=== PATIENT | male | born 1960 | race Caucasian/White ===

== ENCOUNTER 2017-10-17 11:38 | Inpatient (IN) | payer OTHER, MEDICAID ==
--- NOTE | 2017-10-17 11:53 | CPEKG ---
Heart Rate: 92 RR Interval: 652 P-R Interval: 124 QRSD Interval: 120 QT Interval: 372 QTC Interval: 461 P [place]: 82 QRS [place]: -84 T Wave [place]: 77 EKG Severity - ABNORMAL ECG - EKG Impression: SINUS RHYTHM EKG Impression: INCOMPLETE RBBB AND LAFB Electronically Signed By: Gerson Perea 17-Oct-2017 13:57:58
[2017-10-17] MEDS ORDERED: IPRATROPIUM/ALBUTEROL 3 ML DEYVIAL ONE (11:56)
[2017-10-17] MEDS ORDERED: IPRATROPIUM/ALBUTEROL 3 ML DEYVIAL IH ONE (11:57)
[2017-10-17 12:15] LABS: PLATELET COUNT 284 10^3/uL (150-400)
--- NOTE | 2017-10-17 12:16 | EDPHY ---
H & P Smoking Status: Current every day smoker Time Seen by Provider: 10/17/17 12:02 HPI/ROS: CHIEF COMPLAINT: Hypoxia, cough HISTORY OF PRESENT ILLNESS: 57-year-old male presents to the emergency department with complaints of cough and difficulty breathing. The patient states that he has had an ongoing cough for several weeks and this morning when he woke up he noted "my breathing was not right". No history of asthma or pneumonia. He has not noticed a fever. He denies pain in his chest. He has not noticed any pain or swelling in his lower legs. No recent travel. No back pain. No reported trauma. REVIEW OF SYSTEMS: Constitutional: No fever, no chills. Eyes: No double or blurry vision. ENT: No sore throat. Respiratory: Cough, shortness of breath Cardiac: No chest pain. Gastrointestinal: No abdominal pain, vomiting or diarrhea. Genitourinary: No dysuria. Musculoskeletal: No neck or back pain. Skin: No rashes. Neurological: No headache. (Lizy Nova) Past Medical/Surgical History: Paranoid schizophrenia (Lizy Nova) Social History: Single (Lizy Nova) Physical Exam: General Appearance: Alert, no distress. 79% on room air. Heart rate 101, blood pressure 144/78 Eyes: Pupils equal and round. Extraocular motions are all intact. ENT: Mouth: Mucous membranes moist.. Respiratory: The patient decreased breath sounds in the bases and expiratory rhonchi throughout. Cardiovascular: Regular rate and rhythm. Gastrointestinal: Abdomen is soft and nontender, no masses, no rebound or guarding, bowel sounds normal. Neurological: Alert and oriented x 3, cranial nerves II through XII grossly intact Skin: Warm and dry, no rashes. Musculoskeletal: Nontender to palpate along the cervical, thoracic or lumbar spine. Neck is supple. Extremities: Full range of motion and no peripheral edema. Psychiatric: Patient is oriented X 3, there is no agitation. (Lizy Nova) Constitutional: Initial Vital Signs Temperature (C) 36.9 C 10/17/17 11:42 Heart Rate 102 H 10/17/17 11:42 Respiratory Rate 20 10/17/17 11:42 Blood Pressure 144/78 H 10/17/17 11:42 O2 Sat (%) 79 L 10/17/17 11:42 O2 Delivery Mode Room Air O2 (L/minute) 4 Allergies/Adverse Reactions: Penicillins Allergy (Unknown, Verified 10/17/17 11:40) benztropine mesylate [From Cogentin] Allergy (Verified 10/17/17 14:11) Home Medications: Medication Instructions Recorded Valbenazine Tosylate [Ingrezza] 80 mg PO DAILY 04/17/09 Divalproex Sodium 500 mg PO BID@,16 10/17/17 TRIHEXYPHENIDYL HCL 5 mg PO BID@,16 10/17/17 TRIHEXYPHENIDYL HCL 5 mg PO TID PRN 10/17/17 cloZAPine [Clozaril Odt] 50 mg PO HS 10/17/17 cloZAPine [Clozaril Odt] 75 mg PO DAILY 10/17/17 fluPHENAZine HCL [Prolixin 5 MG 15 mg PO BID 10/17/17 (*)] Medical Decision Making - Diagnostics Imaging: Discussed imaging studies w/ newspaper deliverer Radiologist, I viewed and interpreted images myself ED Course/Re-evaluation: 57-year-old male presents to the emergency department with hypoxia. The patient admits to having cold symptoms for a few weeks and then this morning he woke up and was having difficulty breathing. The case was discussed with Dr. Gerson Perea, secondary supervising physician, who did not directly evaluate the patient but agrees with treatment and plan. Laboratory studies reveal normal white blood cell count. BNP was nearly 700. The patient was placed on oxygen and was also given duo nebulizer. Patient was feeling much better after duo nebulizer. Patient had a new left lower lobe nodule in his lung measuring 2.6 cm x 0.8 cm. He has evidence of severe COPD. He has atelectasis in the base versus possible superimposed pneumonia. Given his hypoxia and findings on plain film chest x-ray, CT angiogram has been ordered of the chest and is pending. CT pulmonary angiogram reveals no evidence of pulmonary embolism. No evidence of pneumonia. Severe COPD noted. The patient was kept on 4 L of nasal cannula oxygen to keep his O2 saturation at 93%. Patient was given 125 mg of IV Solu-Medrol. The patient ambulated to the bathroom and when he came back and was going to be hooked back up to the monitor, he was 74% on room air. The patient is not in any respiratory distress. He was placed back on nasal cannula oxygen and will be admitted to Dr. Gtz. 2:30 p.m.: Dr. Lenin Brown came to evaluate the patient. The patient refused admission to the hospital. He states"let me just go outside and smoke" . I explained to the patient that he should be admitted to the hospital for further breathing treatments and steroids to help with his breathing. He understands that he could without oxygen. He states that he just wants to go out and smoke cigarettes. He does not want to stay in the hospital. He states that he would reconsider after he went out to smoke. The Emergency Room production line technician wheeled patient up to the room and he agreed to stay. Dr. Lenin Brown is aware. (Lizy Nova) I did not see this patient while he was in the emergency department. However his care was discussed with the PA while the patient was in the department. I agree with treatment plan and management. (Gerson Perea) Differential Diagnosis: Shortness of breath including but not limited to pulmonary infectious process, COPD, asthma, pulmonary embolus and congestive heart failure. (Lizy Nova) - Data Points Laboratory Results: Laboratory Results 10/17/17 11:52 10/17/17 11:52 Medications Given: Albuterol/Ipratropium (Duoneb) 3 ml IH QID [facility] Stop: 04/15/18 15:59 Last Admin: 10/18/17 11:33 Dose: 3 ml Azithromycin (Zithromax) 250 mg PO DAILY [facility] PRN Reason: Protocol Stop: 11/17/17 08:59 Last Admin: 10/18/17 09:36 Dose: 250 mg Clozapine (Clozaril) 50 mg PO HS [facility] Stop: 04/15/18 20:59 Last Admin: 10/17/17 20:11 Dose: 50 mg Clozapine (Clozaril) 75 mg PO DAILY [facility] Stop: 04/16/18 08:59 Last Admin: 10/18/17 09:35 Dose: 75 mg Divalproex Sodium (Depakote) 500 mg PO BID@09,16 [facility] Stop: 04/15/18 18:14 Last Admin: 10/18/17 09:35 Dose: 500 mg Fluphenazine HCl (Prolixin) 15 mg PO BID [facility] Stop: 04/15/18 20:59 Last Admin: 10/17/17 20:50 Dose: 15 mg Nicotine (Nicoderm Cq) 21 mg TD DAILY [facility] Stop: 04/15/18 15:29 Last Admin: 10/18/17 09:36 Dose: 21 mg Nicotine Polacrilex (Nicorette) 2 mg B PRN PRN PRN Reason: Nicotine Withdrawal Stop: 04/15/18 15:25 Last Admin: 10/18/17 13:51 Dose: 2 mg Prednisone (Prednisone) 40 mg PO DAILY [facility] Stop: 04/15/18 16:29 Last Admin: 10/18/17 09:35 Dose: 40 mg Trihexyphenidyl HCl (Trihexyphenidyl Hcl) 5 mg PO BID@ [facility] Stop: 04/15/18 18:14 Last Admin: 10/18/17 09:35 Dose: 5 mg Trihexyphenidyl HCl (Trihexyphenidyl Hcl) 5 mg PO TID PRN PRN Reason: EPS Stop: 04/15/18 17:47 Last Admin: 10/18/17 13:50 Dose: 5 mg Discontinued Medications Albuterol/Ipratropium (Duoneb) 3 ml IH EDNOW ONE Stop: 10/17/17 11:58 Last Admin: 10/17/17 11:58 Dose: 3 ml Azithromycin (Zithromax) 500 mg PO ONCE ONE PRN Reason: Protocol Stop: 10/17/17 16:27 Last Admin: 10/17/17 18:10 Dose: 500 mg Methylprednisolone Sodium Succinate (Solu-Medrol) 125 mg IVP EDNOW ONE Stop: 10/17/17 13:56 Last Admin: 10/17/17 13:56 Dose: 125 mg Departure - Departure Disposition: [facility] Acute Clinical Impression: Hypoxia COPD (chronic obstructive pulmonary disease) Qualifiers: COPD type: unspecified COPD Qualified Code(s): J44.9 - Chronic obstructive pulmonary disease, unspecified Condition: Fair
[2017-10-17] MEDS ORDERED: IOPAMIDOL (ISOVUE 370) 100 ML BTL IV ONE ×2 (12:46→13:21)
[2017-10-17] MEDS ORDERED: methylPREDNISolone SOD SUCC 125 MG/2 ML VIAL ONE (13:51)
[2017-10-17] MEDS ORDERED: methylPREDNISolone SOD SUCC 125 MG/2 ML VIAL IVP ONE (13:55)
[2017-10-17] MEDS ORDERED: ACETAMINOPHEN 325 MG TAB PO PRN (14:05)
[2017-10-17] MEDS ORDERED: LORazepam 0.5 MG TAB PO PRN (14:05)
[2017-10-17] MEDS ORDERED: ONDANSETRON DISINTEGRATING 4 MG TAB PO PRN (14:05)
[2017-10-17] MEDS ORDERED: HYDROCODONE/APAP 5/325 TAB PO PRN (14:05)
[2017-10-17] MEDS ORDERED: ALBUTEROL 3 ML DEYVIAL IH PRN (14:05)
[2017-10-17] MEDS ORDERED: PROMETHAZINE HCL 25 MG/ML INJ IVP PRN (14:05)
[2017-10-17] MEDS ORDERED: ONDANSETRON 4 MG/2 ML VIAL IVP PRN (14:05)
--- NOTE | 2017-10-17 15:27 | PDGENHP ---
History and Physical - Chief Complaint sob/cough - History of Present Illness 57 yo M with PMH of schizophrenia as well as COPD pw sob and cough. He notes that he feels much better since getting a breathing treatment in the ER. He denies feeling SOB even when his o2 is noted to be in the 70s in the ER. He denies fever or chills, denies chest pain, denies n/v or changes in urination. He states he frequently has sob and cough and does not use inhalers or other medications for this at home. He is a heavy smoker and states that the main reason he wants to go home is because he wants to smoke. History Information - Allergies/Home Medication List Allergies/Adverse Reactions: Penicillins Allergy (Unknown, Verified 10/17/17 11:40) benztropine mesylate [From Cogentin] Allergy (Verified 10/17/17 14:11) Home Medications: Valbenazine Tosylate [Ingrezza] 80 mg PO DAILY 04/17/09 [Last Taken 10/17/17] Divalproex Sodium 500 mg PO BID@,16 10/17/17 [Last Taken 10/17/17] TRIHEXYPHENIDYL HCL 5 mg PO BID@,16 10/17/17 [Last Taken 10/17/17] TRIHEXYPHENIDYL HCL 5 mg PO TID PRN 10/17/17 [Last Taken Unknown] cloZAPine [Clozaril Odt] 50 mg PO HS 10/17/17 [Last Taken 10/16/17] cloZAPine [Clozaril Odt] 75 mg PO DAILY 10/17/17 [Last Taken 10/17/17] fluPHENAZine HCL [Prolixin 5 MG (*)] 15 mg PO BID 10/17/17 [Last Taken 10/17/17] I have personally reviewed and updated: family history, medical history, social history, surgical history - Past Medical History COPD, psychiatric history (schizophrenia) - Surgical History Reports: no pertinent surgical hx - Family History Positive for: non-pertinent - Social History Smoking Status: Heavy smoker Tobacco Use: Cigarettes Alcohol Use: Occasionally Drug Use: None Additional social history: lives in a alf Review of Systems Review of Systems: ROS: 10pt was reviewed & negative except for what was stated in HPI & below Physical Exam Physical Exam: Temp Pulse Resp BP Pulse Ox 36.7 C 93 18 144/86 H 77 L 10/17/17 15:04 10/17/17 15:04 10/17/17 15:04 10/17/17 15:04 10/17/17 15:04 Constitutional: no apparent distress, appears nourished Eyes: PERRL, anicteric sclera Ears, Nose, Mouth, Throat: moist mucous membranes, hearing normal Cardiovascular: regular rate and rhythym, no murmur, rub, or gallop, No edema Respiratory: reduced air movement, expiratory wheeze Gastrointestinal: normoactive bowel sounds, soft, non-tender abdomen Genitourinary: no bladder tenderness Skin: warm, normal color Musculoskeletal: full muscle strength Neurologic: AAOx3 Psychiatric: interacting appropriately, not anxious, not encephalopathic Lab Data & Imaging Review 10/17/17 11:52 10/17/17 11:52 WBC 6.84 10^3/uL (3.80-9.50) 10/17/17 11:52 RBC 4.79 10^6/uL (4.40-6.38) 10/17/17 11:52 Hgb 14.7 g/dL (13.7-17.5) 10/17/17 11:52 Hct 45.2 % (40.0-51.0) 10/17/17 11:52 MCV 94.4 fL (81.5-99.8) 10/17/17 11:52 MCH 30.7 pg (27.9-34.1) 10/17/17 11:52 MCHC 32.5 g/dL (32.4-36.7) 10/17/17 11:52 RDW 12.9 % (11.5-15.2) 10/17/17 11:52 Plt Count 284 10^3/uL (150-400) 10/17/17 11:52 MPV 8.9 fL (8.7-11.7) 10/17/17 11:52 Neut % (Auto) 67.5 % (39.3-74.2) 10/17/17 11:52 Lymph % (Auto) 18.9 % (15.0-45.0) 10/17/17 11:52 [place] % (Auto) 12.4 % (4.5-13.0) 10/17/17 11:52 Eos % (Auto) 0.3 % (0.6-7.6) L 10/17/17 11:52 Baso % (Auto) 0.6 % (0.3-1.7) 10/17/17 11:52 Nucleat RBC Rel Count 0.0 % (0.0-0.2) 10/17/17 11:52 Absolute Neuts (auto) 4.62 10^3/uL (1.70-6.50) 10/17/17 11:52 Absolute Lymphs (auto) 1.29 10^3/uL (1.00-3.00) 10/17/17 11:52 Absolute Monos (auto) 0.85 10^3/uL (0.30-0.80) H 10/17/17 11:52 Absolute Eos (auto) 0.02 10^3/uL (0.03-0.40) L 10/17/17 11:52 Absolute Basos (auto) 0.04 10^3/uL (0.02-0.10) 10/17/17 11:52 Absolute Nucleated RBC 0.00 10^3/uL (0-0.01) 10/17/17 11:52 Immature Gran % 0.3 % (0.0-1.1) 10/17/17 11:52 Immature Gran # 0.02 10^3/uL (0.00-0.10) 10/17/17 11:52 D-Dimer 0.34 ug/mLFEU (0.00-0.50) 10/17/17 11:52 Sodium 135 mEq/L (135-145) 10/17/17 11:52 Potassium 4.6 mEq/L (3.5-5.2) 10/17/17 11:52 Chloride 92 mEq/L (97-110) L 10/17/17 11:52 Carbon Dioxide 31 mEq/l (22-31) 10/17/17 11:52 Anion Gap 12 mEq/L (8-16) 10/17/17 11:52 BUN 9 mg/dL (7-23) 10/17/17 11:52 Creatinine 0.6 mg/dL (0.7-1.3) L 10/17/17 11:52 Estimated GFR > 60 10/17/17 11:52 Glucose 109 mg/dL (70-100) H 10/17/17 11:52 Calcium 8.8 mg/dL (8.5-10.4) 10/17/17 11:52 Troponin I 0.013 ng/mL (0.000-0.034) 10/17/17 11:52 NT-Pro-B Natriuret Pep 658 pg/mL (0-125) H 10/17/17 11:52 Visualized and Interpreted Chest x-ray results: Yes Chest X-Ray results: other (severe emphysema) Visualized and Interpreted imaging results: Yes Interpretation: CTA: no PE, severe emphysema, no PNA, no pulmonary nodule noted on cxr, hiatal hernia EKG Interpretation: Positive for: normal sinsus rhythm, right bundle branch block (incomplete) Assessment & Plan Assessment: Hypoxia (Acute) 57 yo M with hx of schizophrenia and COPD pw acute hypoxic respiratory failure # acute hypoxic respiratory failure: in the setting of copd and likely acute exacerbation of copd, no PE, no PNA noted. Will treat for copd exac as next. This may be more of an acute on chronic picture given lack of sxs with o2 in the low 70s--will likely need to dc with supplemental o2. # copd with acute exacerbation: with start scheduled duonebs, prn albuterol, prednisone and azithromycin for possible atypical pna and for anti-inflammatory effect. He does not use any BD at home, will dc with albuterol/combivent. # schizophrenia: behaviorally controlled and stable, will continue home medications # hyperglycemia: slightly elevated, will recheck in am and obtain A1c if still elevated # tobacco dependence: will start nicotine patch/gum # observation status Patient new to my care. Old records reviewed/summarized as above. CAre plan reviewed with ER doctor as above.
[2017-10-17] MEDS: NICOTINE 21 MG/24 HR PATCH TD SCH (15:42)
[2017-10-17] MEDS: NICOTINE POLACRILEX 2 MG GUM B PRN ×3 (15:42→20:15)
[2017-10-17] MEDS: IPRATROPIUM/ALBUTEROL 3 ML DEYVIAL IH SCH ×2 (15:57→20:48)
[2017-10-17] MEDS ORDERED: AZITHROMYCIN 250 MG TAB PO ONE (16:26)
[2017-10-17] MEDS: predniSONE 20 MG TAB PO SCH (18:10)
[2017-10-17] MEDS: DIVALPROEX NA 500 MG TAB PO SCH (18:43)
[2017-10-17] MEDS: TRIHEXYPHENIDYL HCL 5 MG TAB PO SCH (18:43)
--- NOTE | 2017-10-17 19:08 | ASMTCMCOM ---
CM Note CM Note Notes: Pt admitted for hypoxia; pt lives at [address] [place] [id number] in a care home; will most likely need home oxygen set up; pt agreeable to this and also verbalized interest in quitting smoking through nicotine gum and patches. Pt's high risk case manager at [facility] is Nevin Weiss ([phone]). Spoke with AL Hooper White Sugar Boiler at [facility] ([facility]) and she says pt hasn't been seen there for awhile. Please assist with scheduling follow-up appts at [facility] and [facility]. Exact DC needs unknown; CM to follow. Date Signed: 10/17/2017 07:07 PM Electronically Signed By:Izzy Bullard RN
[2017-10-17] MEDS: cloZAPine 25 MG TAB PO SCH (20:11)
[2017-10-17] MEDS ORDERED: CLOZAPINE 25 MG PO SCH (21:00)
[2017-10-18] MEDS: IPRATROPIUM/ALBUTEROL 3 ML DEYVIAL IH SCH ×4 (05:43→21:25)
[2017-10-18] MEDS ORDERED: CLOZAPINE 25 MG PO SCH (09:00)
[2017-10-18] MEDS: DIVALPROEX NA 500 MG TAB PO SCH ×2 (09:35→17:07)
[2017-10-18] MEDS: TRIHEXYPHENIDYL HCL 5 MG TAB PO SCH ×2 (09:35→17:07)
[2017-10-18] MEDS: cloZAPine 25 MG TAB PO SCH ×2 (09:35→20:08)
[2017-10-18] MEDS: predniSONE 20 MG TAB PO SCH (09:35)
[2017-10-18] MEDS: AZITHROMYCIN 250 MG TAB PO SCH (09:36)
[2017-10-18] MEDS: NICOTINE POLACRILEX 2 MG GUM B PRN ×5 (09:36→20:08)
[2017-10-18] MEDS: NICOTINE 21 MG/24 HR PATCH TD SCH (09:36)
--- NOTE | 2017-10-18 11:19 | HOSPPROG ---
Hospitalist Progress Note Assessment/Plan: 57 yo M with hx of schizophrenia and COPD pw acute hypoxic respiratory failure in the setting of copd with acute exacerbation # acute hypoxic respiratory failure: in the setting of copd and acute exacerbation of copd, no PE, no PNA noted. Suspect this is more of an acute on chronic picture given how relatively asymptomatic patient was with even o2 sats in the 70s. Suspect he will need to dc with supplemental o2. Currently maintaining o2 sats in low 90s with 4L. # copd with acute exacerbation: continue scheduled duonebs, prn albuterol, prednisone and azithromycin. Continues to have significant scattered wheeze and poor air movement. He does not have any BDs at home and will need to dc with those. Elevated bicarb c/w chronic co2 retention. # schizophrenia: behaviorally controlled and stable, will continue home medications # hyperglycemia: remains elevated, A1c pending # tobacco dependence: continue nicotine patch/gum # IP status, will need > 48 hours for eval/mgmt of above given continued low oxygen and continued wheeze Subjective: no acute overnight events, patient states he feels as if he is breathing slightly better than yesterday Objective: Vital Signs Temp Pulse Resp BP Pulse Ox 36.8 C 98 16 106/78 94 10/18/17 08:35 10/18/17 08:35 10/18/17 08:35 10/18/17 08:35 10/18/17 08:35 Microbiology 10/17/17 14:21 Respiratory Panel (PCR) - Final Nasal, Sinus - Swab Human Rhinovirus/Enterovirus Laboratory Results 10/18/17 06:34 10/17/17 10/18/17 10/19/17 05:59 05:59 05:59 Intake Total 700 Balance 700 awake alert nad anicteric op clear, poor dentition rrr no mrg scattered wheeze and dec bs throughout soft nt nd no cce warm dry well perfused oriented appropriate ICD10 Worksheet Patient Problems: Problems Problem Status Onset Hypoxia Acute COPD (chronic obstructive pulmonary disease) Acute
--- NOTE | 2017-10-18 13:02 | ASMTCMCOM ---
CM Note CM Note Notes: Spoke with patient about discharge; he is amenable to O2 at home if that is recommended. I also spoke with Nevin Weiss ([phone]) his glove maker. She will assist with making follow up appointments for patient at [facility] (his psychiatrist is Dr Bashir, PCP is Dr Pillai). She requested that we give him a cab voucher to get home; this shouldn't be a problem. Case Management will assist with any other discharge needs. Date Signed: 10/18/2017 01:02 PM Electronically Signed By:Adriana Roche RN
[2017-10-18] MEDS: TRIHEXYPHENIDYL HCL 5 MG TAB PO PRN ×2 (13:50→20:09)
--- NOTE | 2017-10-18 16:54 | PDMN ---
Medical Necessity Medical necessity: change to IP; los>2mn for hypoxic resp failure, suspected acute on chronic, in setting of COPD exacerbation; requires supplemental O2 4L , scheduled nebs, abx, and steroids; comorbid schizophrenia; per order and progress note 10/18/17 [id number]
[2017-10-18] MEDS: Valbenazine Tosylate [Ingrezza] 80 MG PO SCH (17:11)
[2017-10-19] MEDS: IPRATROPIUM/ALBUTEROL 3 ML DEYVIAL IH SCH ×2 (04:54→10:31)
[2017-10-19] MEDS: NICOTINE POLACRILEX 2 MG GUM B PRN ×3 (05:03→15:05)
[2017-10-19] MEDS: TRIHEXYPHENIDYL HCL 5 MG TAB PO PRN (05:05)
[2017-10-19] MEDS: NICOTINE 21 MG/24 HR PATCH TD SCH (08:56)
[2017-10-19] MEDS: cloZAPine 25 MG TAB PO SCH (08:58)
[2017-10-19] MEDS: AZITHROMYCIN 250 MG TAB PO SCH (08:58)
[2017-10-19] MEDS: TRIHEXYPHENIDYL HCL 5 MG TAB PO SCH (08:58)
[2017-10-19] MEDS: predniSONE 20 MG TAB PO SCH (08:58)
[2017-10-19] MEDS: DIVALPROEX NA 500 MG TAB PO SCH (08:59)
[2017-10-19] MEDS: Valbenazine Tosylate [Ingrezza] 80 MG PO SCH (09:05)
[2017-10-19 09:42] VITALS: BP 117/79
--- NOTE | 2017-10-19 12:52 | PDDCSUM ---
Discharge Summary Discharge Summary: 57 yo M with hx of schizophrenia and COPD pw acute hypoxic respiratory failure in the setting of copd with acute exacerbation. Now improving slowly. He wants to discharge and f/u with his PCP. He will be set with supplemental O2 and well as given a Prednisone taper and Azithromycin. He will f/u with his PCP in one week. Discharge Diagnosis: # acute hypoxic respiratory failure: in the setting of copd and acute exacerbation of copd, no PE, no PNA noted. Suspect this is more of an acute on chronic picture given how relatively asymptomatic patient was with even o2 sats in the 70s. He will dc with supplemental O2 #+Human Rhinovirus # copd with acute exacerbation. # schizophrenia: behaviorally controlled and stable, will continue home medications # tobacco dependence: Exam: NAD AAOX3 RRR EXP WHEEZE S/NT/ND NO LE EDEMA MEDS: SEE MED REC F/U: PER ABOVE TOTAL TIME SPENT ON D/C IS 35 MINUTES
--- NOTE | 2017-10-19 13:14 | PDHOMEO2F ---
Home Oxygen Face to Face Home Orders: I certify that a physician or a nurse practitioner or physician's it administrative assistant has had a [id number] encounter with this patient on the date of this order due to the diagnosis listed, which relates to the primary reason the patient requires home oxygen. Alternative treatments have been tried, or considered, and deemed ineffective. It is anticipated that supplemental oxygen will result in improvement with treatment. Home oxygen qualifying diagnosis: hypoxemia SpO2 on room air (%): 76 Frequency of home oxygen needed: continuous Home oxygen liters per minute: 4 Home oxygen delivery device: nasal cannula Concentrator: Yes E-tanks for mobility and back up: Yes If ordering portable O2, is the patient mobile in the home?: Yes I certify that, based on these findings, the home oxygen is medically necessary for this patient for the following length of time. Length of time home oxygen needed: 99 years
== END 2017-10-19 15:47 | disposition home or self-care (01) | DRG 189 ==
LOC: OBSVTOIN 13:55 → F1N 14:44
PROVIDERS: ADMIT Student in an Organized Health Care Education/Training Program; ATTEND Student in an Organized Health Care Education/Training Program
DX: J96.21 Acute and chronic respiratory failure with hypoxia (principal); J44.1 Chronic obstructive pulmonary disease with (acute) exacerbation; B97.89 Other viral agents as the cause of diseases classified elsewhere; F17.200 Nicotine dependence, unspecified, uncomplicated; F20.0 Paranoid schizophrenia; Z88.0 Allergy status to penicillin
CPT/HCPCS: 96374; G0378; J2930; J7512; Q9967